=== PATIENT | female | born 1955 | race Caucasian/White ===

== ENCOUNTER 2022-06-06 16:10 | Inpatient (IN) | payer OTHER ==
[~2022-06-06] VITALS: Ht 157.5 cm; Wt 66.2 kg
[2022-06-06 16:16] VITALS: BP 114/66
--- NOTE | 2022-06-06 16:19 | NUR ---
PT AMBULATED TO ER BED 8
--- NOTE | 2022-06-06 16:25 | NUR ---
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 Patient A&Ox4, ambulatory, Georgian speaking, reports left-sided chest pain at rest 5/10, 10/10 with deep breaths/left arm raises that is pressure/intermittent, radiating to left breast and left mid back. Patient denies neck/back pain, fever, chills, nausea, vomiting, diarrhea, abdominal pain, blurry vision, constipation, dysuria. Pain meds at 0800 without relief. Bed locked in lowest position, side rails x 1. PMH: HTN, HLD, osteoporosis Meds: nefedipine, atorvastatin NKDA Sx: tubal ligation
--- NOTE | 2022-06-06 16:37 | NUR ---
RAD at bedside
--- NOTE | 2022-06-06 16:39 | NUR ---
Lab at bedside
[2022-06-06 16:50] LABS: BASOPHILS % (AUTO) 0.3 % (0.0-2.0); EOSINOPHILS # (AUTO) 0.2 K/uL (0-0.4); EOSINOPHILS % (AUTO) 2.8 % (0.0-4.0); HEMATOCRIT 33.7 % (36-48); HEMOGLOBIN 11.4 g/dL (12.0-16.0); LYMPHOCYTES # (AUTO) 1.6 K/uL (2.5-16.5); MEAN CORPUSCULAR HEMOGLOBIN 31 pg (27-31); MEAN CORPUSCULAR HGB CONC 34 g/dL (33-37); MEAN CORPUSCULAR VOLUME 90.6 fL (80-94); MONOCYTES # (AUTO) 0.5 K/uL (0.8-1.0); MONOCYTES % (AUTO) 6.9 % (1.7-9.3); NEUTROPHILS # (AUTO) 5.5 K/uL (1.8-7.7); PLATELET COUNT (AUTO) 297 K/uL (140-450); RED BLOOD CELL COUNT(AUTO) 3.71 MIL/uL (4.20-5.40); RED CELL DISTRIBUTION WIDTH 13.8 % (11.6-13.7); WHITE BLOOD COUNT (AUTO) 7.9 K/uL (4.8-10.8)
[2022-06-06 17:03] LABS: ALBUMIN 3.9 g/dL (3.4-5.0); ANION GAP 12.5 (8-16); CARBON DIOXIDE 28.7 mmol/L (21-32); CREATININE 0.9 mg/dL (0.6-1.3); POTASSIUM 3.2 mmol/L (3.5-5.1); TOTAL BILIRUBIN 0.5 mg/dL (0.0-1.0)
--- NOTE | 2022-06-06 17:25 | NUR ---
Patient to CT via wheelchair
--- NOTE | 2022-06-06 17:40 | NUR ---
Patient returned from CT and placed onto pet house sitter
[2022-06-06] MEDS ORDERED: POTASSIUM CHLORIDE 20% 40 MEQ/15 ML UDC PO ONE (18:20)
--- NOTE | 2022-06-06 19:05 | NUR ---
Lab at bedside
--- NOTE | 2022-06-06 19:32 | NUR ---
Patient transported to CT by WC
--- NOTE | 2022-06-06 19:33 | NUR ---
Report and transfer of care endorsed to LANE Yañez.
[2022-06-06] MEDS ORDERED: MAG SULF 2000 MG/WATER PREMIX 50 ML IV ONE (19:45)
--- NOTE | 2022-06-06 19:55 | NUR ---
66 Y/O F presents with bilateral pressure chest pain 5/10, becomes worse with deep breathes 10/10 x4 days from home. pt states pain is intermittent and radiates from chest to L mid back. pt is A&Ox4, skin intact, denies any NVD, pt states headaches x2 hrs 5/10. pt stated she has had one episode of syncope xyesterday morning. pt is albanian speaking only. PMH-HTN, HLD, osteoporosis NKA
--- NOTE | 2022-06-06 20:30 | NUR ---
pt ambulated to restroom without assistance
--- NOTE | 2022-06-06 21:20 | NUR ---
pt denies any pain at the moment. awaiting admission. pt resting in room, repsirations even and unlabored
[2022-06-06] MEDS ORDERED: MORPHINE SULFATE 4 MG/ML SYR IVP PRN (21:30)
[2022-06-06] MEDS ORDERED: ASPIRIN 325 MG TAB PO ONE (21:30)
[2022-06-06] MEDS ORDERED: HYDROcodone/APAP 5/325 MG 1 TAB TAB PO PRN (21:30)
[2022-06-06] MEDS ORDERED: ONDANSETRON 4 MG/2 ML VIAL IVP PRN (21:30)
[2022-06-06] MEDS ORDERED: ACETAMINOPHEN 325 MG TAB PO PRN (21:30)
[2022-06-06] MEDS ORDERED: MAGNESIUM OXIDE 400 MG TAB PO PRN (21:30)
[2022-06-06] MEDS: NACL 0.9% 1,000 ML IV SCH (22:16)
--- NOTE | 2022-06-06 23:45 | NUR ---
pt ambulated to restroom without assistance
--- NOTE | 2022-06-07 02:15 | NUR ---
pt ambulated to restroom without assistance
--- NOTE | 2022-06-07 04:20 | NUR ---
pt in room on phone, awaiting admission
[2022-06-07] MEDS ORDERED: NIFE30TE5 PO (07:30)
[2022-06-07] MEDS ORDERED: ATOR10TA PO (07:30)
[2022-06-07 08:00] VITALS: BP 119/71
--- NOTE | 2022-06-07 08:01 | NUR ---
RECEIVE PATIENT FROM ER @0755 WHO COMES FROM HOME FOR L.CHEST PAIN. PATIENT ALERT X4, SALVADOREAN SPEAKING, ADMIT UNDER CARE OF DR. NAZARIO FOR OBSERVATION STATUS D/T DIAGNOSIS CHEST PAIN. PATIENT HAS HX OF HTN, HLD, BRAIN BLEED ABOUT 10 YEARS AGO WHICH SHOWS NO ACUTE BLEEDING PER HEAD CT REPORT; NKA, FULL CODE, AND AMBULATORY, ON ROOM AIR. PATIENT CURRENT ON CARDIAC DIET, PIV AT LAC 20G SALINE LOCK. MRSA SPECIMEN COLLECTED. WILL CONTINUE TO MONITOR
--- NOTE | 2022-06-07 08:06 | NUR ---
Patient will be admitted to care of Dr. Stovall . Admited to Tele. Will go to room 126B. Belongings list completed. Report to Kriss POND.
--- NOTE | 2022-06-07 09:15 | NUR ---
PATIENT HAS BEEN SCREENED AND CATEGORIZED MODERATE NUTRITION RISK. PATIENT WILL BE SEEN WITHIN 3-5 DAYS OF ADMISSION. 06/09/22-06/11/[address]
[2022-06-07] MEDS: NACL 0.9% 1,000 ML IV SCH ×2 (10:22→23:28)
[2022-06-07 12:00] VITALS: BP 127/74
--- NOTE | 2022-06-07 12:15 | NUR ---
DC PLANNING ASSESSMENT COMPLETE PLEASE REFER TO ASSESSMENT FOR ADDITIONAL DETAILS PT REPORTS DC PLAN IS TO RETURN HOME WITH FAMILY PROVIDING TRANSPORATION, WHEN MEDICALLY STABLE. Addendum: 06/08/22 at 0847 by Anita MARTINEZ Amended: Links added.
[2022-06-07] MEDS ORDERED: KETOROLAC 30 MG/ML VIAL IVP PRN (13:10)
[2022-06-07 16:00] VITALS: BP 112/66
--- NOTE | 2022-06-07 19:46 | NUR ---
ENDORSE PATIENT IN STABLE CONDITION TO PM SHIFT NURSE WHILE NS INFUSING @80ML/HR VIA LAC
[2022-06-07 20:00] VITALS: BP 112/66
--- NOTE | 2022-06-07 22:00 | NUR ---
PT IS STABLE AND ASLEEP.
[2022-06-08] VITALS: BP 150/79
--- NOTE | 2022-06-08 00:30 | NUR ---
PT IS ASLEEP BUT AROUSABLE ON STIMULI. PT DENIES OF PAIN OR DISCOMFORT.
[2022-06-08 04:00] VITALS: BP 138/83
--- NOTE | 2022-06-08 04:30 | NUR ---
PT INDEPENDENTLY AMBULATES TO RESTROOM AND HAS BM.
[2022-06-08 05:54] LABS: BASOPHILS # (AUTO) 0.1 K/uL (0.00-0.22); BASOPHILS % (AUTO) 1.5 % (0.0-2.0); EOSINOPHILS # (AUTO) 0.3 K/uL (0-0.4); EOSINOPHILS % (AUTO) 5.6 % (0.0-4.0); HEMATOCRIT 32.7 % (36-48); HEMOGLOBIN 11.3 g/dL (12.0-16.0); LYMPHOCYTES # (AUTO) 1.7 K/uL (2.5-16.5); MEAN CORPUSCULAR HEMOGLOBIN 34 pg (27-31); MEAN CORPUSCULAR HGB CONC 35 g/dL (33-37); MEAN CORPUSCULAR VOLUME 96.9 fL (80-94); MONOCYTES # (AUTO) 0.3 K/uL (0.8-1.0); MONOCYTES % (AUTO) 6.4 % (1.7-9.3); NEUTROPHILS # (AUTO) 2.8 K/uL (1.8-7.7); NEUTROPHILS % (AUTO) 53.5 % (42.2-75.2); PLATELET COUNT (AUTO) 282 K/uL (140-450); RED BLOOD CELL COUNT(AUTO) 3.38 MIL/uL (4.20-5.40); RED CELL DISTRIBUTION WIDTH 13.5 % (11.6-13.7); WHITE BLOOD COUNT (AUTO) 5.1 K/uL (4.8-10.8)
[2022-06-08 06:09] LABS: ANION GAP 11.8 (8-16); CARBON DIOXIDE 27.8 mmol/L (21-32); CREATININE 0.8 mg/dL (0.6-1.3); POTASSIUM 3.6 mmol/L (3.5-5.1)
--- NOTE | 2022-06-08 07:25 | NUR ---
PT IS ON STABLE CONDITION, NO SOB OR DISTRESS. SAFETY MEASURES ARE IN PLACE, ENDORSED TO DAY SHIFT NURSE SAVANAH FOR CONTINUITY OF CARE.
--- NOTE | 2022-06-08 07:30 | NUR ---
PT IS ON STABLE CONDITION, NO SOB OR DISTRESS. SAFETY MEASURES ARE IN PLACE, ENDORSED TO DAY SHIFT NURSE SAVANAH FOR CONTINUITY OF CARE.
[2022-06-08 08:00] VITALS: BP 115/70
[2022-06-08] MEDS: NACL 0.9% 1,000 ML IV SCH (11:26)
[2022-06-08 11:42] VITALS: BP 115/70
[2022-06-08 12:00] VITALS: BP 139/54
--- NOTE | 2022-06-08 12:59 | NUR ---
RECEIVED REPORT FROM MANAGER ESTATE NURSE FOR CONTINUITY OF CARE. PT ARE STABLE. Addendum: 06/08/22 at 1300 by Darlene Coffey RN RECEIVED REPORT AT 0720 THIS MORNING
== END 2022-06-08 12:55 | disposition home or self-care (01) | DRG 203 ==
LOC: MED 16:10 → OBSVTOIN 21:31 → MTU 21:31 → MMU 06-07 06:02
PROVIDERS: ADMIT Student in an Organized Health Care Education/Training Program; ATTEND Student in an Organized Health Care Education/Training Program
DX: R07.89 Other chest pain (principal); E78.5 Hyperlipidemia, unspecified; E87.6 Hypokalemia; K80.20 Calculus of gallbladder without cholecystitis without obstruction; M81.0 Age-related osteoporosis without current pathological fracture; I10 Essential (primary) hypertension; Z20.822 Contact with and (suspected) exposure to COVID-19; V89.2XXA Person injured in unspecified motor-vehicle accident, traffic, initial encounter; Z86.73 Personal history of transient ischemic attack (TIA), and cerebral infarction without residual deficits; R55 Syncope and collapse
CPT/HCPCS: 36415; 70450; 71045; 71275; 80048; 80053; 83880; 84484; 85025; 85379; 87081; 96365; 96366; 99285; J1644; J3475; Q0092; Q9967